=== PATIENT | male | born 1960 | race African-American/Black ===

== ENCOUNTER 2023-11-28 14:00 | Outpatient (CLI) | payer OTHER, SELFPAY ==
--- NOTE | ~2023-11-28 | NM_ITS ---
EXAMINATION: NM thyroid scan w uptake DATE: 11/29/2023 15:21 INDICATION: Disorder of thyroid. COMPARISON: None. TECHNIQUE: 0.355 mCi I-[id number] was administered orally. Scintigraphic images of the thyroid gland were o btained at 24 hours. Thyroid uptake was calculated by the technologist. FINDINGS: The thyroid uptake is 31% (normal 10-30%), with the right lobe measuring 16% uptake and the left 16%. There is no focal area of decreased or increased activity to suggest hypofunctioning or hyperfunctio lei nodule. IMPRESSION: 1. Borderline increased 24-hour iodine uptake. Correlate with laboratory analysis for hyperthyroidis m. Reviewed, dictated and finalized at location A. IMPRESSION: 1. Borderline increased 24-hour iodine uptake. Correlate with laboratory indira sis for hyperthyroidism.
== END 2023-11-28 14:01 | disposition home or self-care (01) ==
DX: F10.20 Alcohol dependence, uncomplicated (principal); F15.20 Other stimulant dependence, uncomplicated; E78.5 Hyperlipidemia, unspecified; E07.9 Disorder of thyroid, unspecified; E66.9 Obesity, unspecified; H25.9 Unspecified age-related cataract; E11.9 Type 2 diabetes mellitus without complications; H52.209 Unspecified astigmatism, unspecified eye; H52.4 Presbyopia; K03 Other diseases of hard tissues of teeth; K59.00 Constipation, unspecified; R76.0 Raised antibody titer; K06.9 Disorder of gingiva and edentulous alveolar ridge, unspecified
CPT/HCPCS: 78014; A9516